=== PATIENT | female | born 1975 | race Caucasian/White ===

== ENCOUNTER 2017-11-27 05:17 | Inpatient (IN) | payer OTHER ==
[2017-11-27 06:09] LABS: #Eosinphils 0.2 thou/uL (0.0-0.7); #Lymphocytes 1.1 thou/uL (1.20-3.40); #Monocytes 0.4 thou/uL (0.11-0.59); #Neutrophils 5.2 thou/uL (1.40-6.50); %Basophils 0.7 % (0.0-1.0); %Eosinophils 2.3 % (0.0-10.0); %Lymphocytes 15.4 % (21.0-51.0); %Neutrophils 75.6 % (42.0-75.0); Hemoglobin 13.3 g/dL (12.0-16.0); Mean Corpuscular HGB CONC 33.9 g/dL (32.0-36.0); Mean Corpuscular Hemoglobin 31.4 pg (27.0-31.0); Mean Corpuscular Volume 92.6 fl (81.0-99.0); Mean Platelet Volume 6.3 fL (7.4-10.4); Platelet Count 233 thou/uL (130-400); RBC Distribution Width 11.6 % (11.5-14.5); Red Blood Cell (RBC) Count 4.25 mill/uL (4.20-5.40); White Blood Cell (WBC) Count 6.8 thou/uL (4.8-10.8)
[2017-11-27 06:28] LABS: ALT (SGPT) 97 U/L (8-55); AST (SGOT) 111 U/L (5-34); Alkaline Phosphatase 103 U/L (40-150); Anion Gap 12 mmol/L (10-20); BUN (Urea Nitrogen) 11 mg/dL (7.0-18.7); Bilirubin, Total 1.5 mg/dL (0.2-1.2); CK (CPK) 45 U/L (29-168); Calc. Creatinine Clearance 0 mL/min (70-130); Calcium 8.9 mg/dL (7.8-10.44); Carbon Dioxide 23 mmol/L (22-29); Chloride 106 mmol/L (98-107); Estimated GFR-MDRD 82; Globulin 2.6 g/dL (2.4-3.5); Glucose 101 mg/dL (70-105); Lipase 897 U/L (8-78); Potassium 3.7 mmol/L (3.5-5.1); Protein, Total 6.6 g/dL (6.0-8.3); Sodium 137 mmol/L (136-145)
[2017-11-27 06:32] LABS: CKMB 0.5 ng/mL (0-6.6); Troponin I Less than 0.010 ng/mL (< 0.028)
[2017-11-27 06:53] LABS: BHCG - Serum Negative (NEGATIVE); Pregs Control Background? CLEAR/WHITE (CLR/WHITE); Pregs Control Bar Appear? YES (CONTROL BAR)
[2017-11-27] MEDS ORDERED: Ketorolac Tromethamine 30 MG/ML VIAL ONE (06:58)
[2017-11-27] MEDS ORDERED: Morphine 2 MG/ML SYRINGE ONE (06:58)
[2017-11-27] MEDS ORDERED: Ondansetron HCl/PF 4 MG/2 ML Vial ONE (06:58)
--- NOTE | 2017-11-27 07:39 | RAD ---
RADIOGRAPH CHEST 1 VIEW: HISTORY: A 42-year-old female with acute midsternal chest pain, nonproductive cough. FINDINGS: There is no air space density, pulmonary edema, or pneumothorax. The lateral costophrenic angles are sharp. IMPRESSION: No acute pulmonary findings. keyur [] POS: [facility]
--- NOTE | 2017-11-27 07:48 | CT ---
CT ABDOMEN WITH CONTRAST CT PELVIS WITH CONTRAST: DATE: 11/27/17. TIME: 7:18 a.m. HISTORY: A 42-year-old female with midsternal chest pain, nonproductive cough, and malaise. COMPARISON: None. TECHNIQUE: IV injection of iodinated contrast media: 100 mL of Isovue 370. Oral contrast media: Not administered. FINDINGS: In the anterolateral basilar portion of the left lower lobe, there is a patchy airspace opacity highl y suspicious for pneumonia. No pleural effusion. No pneumoperitoneum or ascites. IUD. 2.5 x 2 cm left ovarian cystic lesion with relatively high density 25 HU, suggestive of a hemorrhagic cyst. No acute colonic diverticulitis. Cholecystectomy clips in the gallbladder fossa. Mild diffuse dilation of biliary tree, presumably on a reservoir basis due to the cholecystectomy. No other abnormality o f the liver. A 2 x 3 x 4 mm calculus at a left renal mid pole calyx. No other abnormality of the le ft kidney. Normal right kidney, abdominal aorta, adrenals, pancreas, and spleen. No small bowel dil ation. Normal appendix. No destructive osseous lesion. Metallic ornamental piercing at genital lab ia. IMPRESSION: 1. Evidence for left basilar lower lobe pneumonia (not visible on today's chest radiograph because i t was a 1 view study, rather than 2 view). 2. A 2.5 cm left hemorrhagic ovarian cyst. 3. Intrauterine device. 4. Status post cholecystectomy. 5. No acute findings within the abdominal cavity or pelvic cavity. 6. Nephrolithiasis: solitary calculus of left kidney. FATOUMATA [place] POS: [facility]
[2017-11-27] MEDS ORDERED: Azithromycin 500 MG VIAL ONE (07:52)
[2017-11-27] MEDS ORDERED: cefTRIAXone\\ROCEPHIN 1 GM, Syringe 0.4 ML in Sterile Water 9.6 ML SLOW IVP SCH (08:00)
--- NOTE | 2017-11-27 08:25 | PDOC.FPRHP ---
- History of Present Illness Chief Complaint: cough, nausea, vomiting, epigastric/lower sternal cp w/ radiation to back History of Present Illness: 42 yo F w/o significant pmh hx comes in for 4 day h/o dry cough and associated chills and myalgias who had acute onset epigastric/lower sternal pain with radiation to her back that woke her from sleep this morning. She describes the pain as sharp in nature and episodic, relieved only by toradol and morphine in ed. Also reports associated nasuea w/o vomiting. Last meal was yesterday @ 4pm. She has a prior surgical hx of lap carleen in 2012 w/o complication. In ED pt was found to have elvated lfts in addition to lipase of 890. She was placed NPO and given morphine and toradol for pain inaddition to zofran for nausea. Additionally, pt was found to have paatchy opacity LLL on CT of abd and pelvis concerning for pneumonia, although clinically, no overt signs of infection. ED Course: zofran toradol morphine azithromycin rocephin 1lns d5, 1/2NS - Allergies/Adverse Reactions Allergies Allergy/AdvReac Type Severity Reaction Status Date / Time No Known Drug Allergies Allergy Unverified 11/27/17 10:58 - History PMHx: None PSHx: Lap carleen 2012 FHx:None Social: Non smoker, non drinker no drugs - Review of Systems General: denies: fever/chills, weight/appetite/sleep changes, night sweats Eyes: denies: eye pain, vision changes ENT: reports: nasal congestion, rhinorrhea Respiratory: reports: cough. denies: congestion, shortness of breath, exercise intolerance Cardiovascular: reports: chest pain (/epigastric and lower sternal, midline). denies: palpitation, edema, orthopnea Gastrointestinal: reports: nausea, abdominal pain. denies: vomiting, diarrhea, constipation Skin: denies: rashes, lesions Musculoskeletal: reports: arthritis/arthralgias. denies: pain, swelling Neurological: denies: syncope, weakness - Vital signs BP: 112/91 HR: 86 RR: 16 Tmax: 98.6 Pox: 92% on RA Wt: 102Kg - Physical Exam Constitutional: NAD, awake, alert and oriented HEENT: normocephalic and atraumatic, PERRLA, EOMI, no scleral icterus, grossly normal vision, TM's clear and intact, grossly normal hearing, MMM, oropharynx clear Neck: supple, FROM, trachea midline, no LAD, no JVD, no thyromegaly Chest: no lesions, other (ttp midline, lower sternum) Heart: RRR, normal S1/S2, no murmurs/rubs/gallops, pulses present, no edema Lungs: CTAB, no respiratory distress, good air movement, no rales/rhonchi, no wheezing, no retractions Abdomen: soft, non-tender, bowel sounds present, no masses/distention Neurological: no focal deficit, normal sensation Skin: no rash/lesions, good turgor, capillary refill <2 seconds, no jaundice Heme/Lymphatic: no unusual bruising or bleeding, no purpura Psychiatric: normal mood and affect FMR H&P: Results - Labs Result Diagrams: 11/27/17 05:57 11/27/17 05:57 Lab results: WBC 6.8 thou/uL (4.8-10.8) 11/27/17 05:57 Hgb 13.3 g/dL (12.0-16.0) 11/27/17 05:57 Hct 39.3 % (36.0-47.0) 11/27/17 05:57 MCV 92.6 fl (81.0-99.0) 11/27/17 05:57 Plt Count 233 thou/uL (130-400) 11/27/17 05:57 Neutrophils % 75.6 % (42.0-75.0) H 11/27/17 05:57 Sodium 137 mmol/L (136-145) 11/27/17 05:57 Potassium 3.7 mmol/L (3.5-5.1) 11/27/17 05:57 Chloride 106 mmol/L (98-107) 11/27/17 05:57 Carbon Dioxide 23 mmol/L (22-29) 11/27/17 05:57 BUN 11 mg/dL (7.0-18.7) 11/27/17 05:57 Creatinine 0.78 mg/dL (0.6-1.1) 11/27/17 05:57 Glucose 101 mg/dL (70-105) 11/27/17 05:57 Calcium 8.9 mg/dL (7.8-10.44) 11/27/17 05:57 Total Bilirubin 1.5 mg/dL (0.2-1.2) H 11/27/17 05:57 AST 111 U/L (5-34) H 11/27/17 05:57 ALT 97 U/L (8-55) H 11/27/17 05:57 Alkaline Phosphatase 103 U/L (40-150) 11/27/17 05:57 Creatine Kinase 45 U/L (29-168) 11/27/17 05:57 CK-MB (CK-2) 0.5 ng/mL (0-6.6) 11/27/17 05:57 B-Natriuretic Peptide 12.8 pg/mL (0-100) 11/27/17 05:57 Serum Total Protein 6.6 g/dL (6.0-8.3) 11/27/17 05:57 Albumin 4.0 g/dL (3.5-5.0) 11/27/17 05:57 Lipase 897 U/L (8-78) H 11/27/17 05:57 - EKG Interpretation EKG: NSR rate 71 - Radiology Interpretation Chest x-ray Status: report reviewed by me (NAD) CT scan - abdomen Status: report reviewed by me (Patchy oopacity LLL, concerning for pneumonia) FMR H&P: A/P - Problem List (1) Pancreatitis Current Visit: Yes Status: Acute Code(s): K85.90 - ACUTE PANCREATITIS WITHOUT NECROSIS OR INFECTION, UNSP (2) Community acquired pneumonia Current Visit: Yes Status: Suspected Code(s): J18.9 - PNEUMONIA, UNSPECIFIED ORGANISM - Plan 1) Pancreatitis: -admit medical - NPO, ADAT - RUQ US with evaluation of CBD, concern for gallstone pancreatitis - check LDH, lipids, AM cmp, AM CBC - Sanje[place] 0, LDH pending - IVF NS @ 125mls/hr - Demerol and phenergan for pain and nausea/vomiting control, respectively 2) CAP, suspected: - CT abd showed pathcy lll infiltrate concerning for pneumonia, additionally pt has persistent cough - will continue rocephin and azithromycin for cap coverage - check procalcitonin - IVF NS @ 125 3) PPX: SCDs, Pepcid Disposition/LOS: stable. >/= 2 days. Symptomatic meds will be provided. FMR H&P: Upper Level - Pertinent history 42F with no significant PMH who presents with 1 day history of epigastric abdominal pain that radiates to her back associated with nausea and inability to tolerate PO. Patient is s/p lap carleen in 2012 with no complications. She takes no medications at home. She is also c/o a dry cough since . - Pertinent findings CBC normal CMP significant for lipase of 897, AST of 111 and ALT of 97, total bilirubin of 1.5 D-Dimer negative PE significant for epigastric pain but no guarding. Breath sounds were CTA-B - Plan Date/Time: 11/27/17 0821 I, Paco Carlin, have evaluated this patient and agree with findings/plan as outlined by internal grinder set up operator resident. Pertinent changes/additions are listed here. 1. Pancreatitis: Lipase of nearly 900 with epigastric abdominal pain and no longer tolerating PO. Admit to medical/inpatient. NPO and bowel rest. Morphine for pain control. History of lap carleen in 2012 with no complications. No other significant PMH. 2. LLL PNA: CXR negative but CT abd/pelvis showes LLL highly suspicious for PNA. Afebrile and no leukocytosis but has had a nonproductive cough since . Will check procalcitonin and continue antibiotics for now. 3. Transaminitis/hyperbilirubinemia: check viral hepatitis panel, RUQ US Attending Addendum - Attending Addendum Date/Time: 11/27/17 1126 I personally evaluated the patient and discussed the management with Dr. Wong. I agree with the History, Examination, Assessment and Plan documented above with any addition or exceptions noted below. Patient here with a few days of cough and acute onset mid epigastric pain and midsternal pain with radiation to back. No associated/alleviating/exacerbating factors. History of cholecystectomy. Her lipase is elevated in association with her pain. She will be admitted for pancreatitis. NPO, IVF, and pain control as needed. Unlikely lipid related or alcohol related. AST/ALT elevated as well as mild bili elevation. Will check U/S to see if gallstone as cause of her illness. CT shows infiltrate and associated cough for last few days, will cover for CAP for now.
[2017-11-27] MEDS ORDERED: cefTRIAXone\\ROCEPHIN 2 GM in Sodium Chloride 0.9% 100 ML IVPB SCH (09:00)
[2017-11-27] MEDS ORDERED: Meperidine HCl/PF 25 MG/ML VIAL SLOW IVP PRN (09:50)
[2017-11-27] MEDS ORDERED: Ondansetron ODT 4 MG TAB PO PRN (09:50)
[2017-11-27] MEDS ORDERED: Promethazine HCl 25 MG/ML VIAL IM PRN (09:50)
[2017-11-27] MEDS ORDERED: Ondansetron HCl/PF 4 MG/2 ML Vial IVP PRN (09:50)
[2017-11-27] MEDS ORDERED: Famotidine/PF 20 mg/2ml Vial SLOW IVP SCH (10:15)
[2017-11-27 10:17] LABS: Cardiac Risk 3.3 (Less than 4.5)
[2017-11-27 10:32] VITALS: BMI 39.4
[2017-11-27] MEDS: Sodium Chloride 0.9% 1,000 ML IV SCH ×2 (11:02→16:28)
[2017-11-27] MEDS ORDERED: FLU VACC QS2017-18 36 mo. & older 0.5 ML SYRINGE IM ONE (14:00)
[2017-11-27] MEDS ORDERED: ISOVUE-370 76%-LOCM 1 ML ONE (14:40)
--- NOTE | 2017-11-27 15:42 | ULT ---
COMPLETE ABDOMEN ULTRASOUND: Indication: History of acute pancreatitis. Comparison: Prior CT abdomen/pelvis, 11-27-17. FINDINGS: No focal hepatic lesion is evidence. Visualized aorta and IVC within normal limits. The spleen is enl arged measuring 13.6 cm. The gallbladder is surgically absent. Common bile duct measures up to 1.1 cm . Visualized aspects of the pancreas are unremarkable. Right kidney measures 10.5 x 4.6 x 4.5 cm. Lef t kidney measures 11.2 x 4.5 x 4.1 cm. There are small echogenic foci within the left renal sinus, schultz spicious for a 5 mm nonobstructive calculus. IMPRESSION: 1. Cholecystectomy. 2. Left nephrolithiasis. 3. Nonspecific mild splenomegaly. POS: [facility]
[2017-11-27] MEDS: Famotidine/PF 20 mg/2ml Vial SLOW IVP SCH (19:41)
[2017-11-28] MEDS: Sodium Chloride 0.9% 1,000 ML IV SCH ×3 (00:33→17:18)
[2017-11-28 04:36] LABS: #Eosinphils 0.1 thou/uL (0.0-0.7); #Lymphocytes 1.1 thou/uL (1.20-3.40); #Monocytes 0.3 thou/uL (0.11-0.59); #Neutrophils 3.8 thou/uL (1.40-6.50); %Basophils 0.5 % (0.0-1.0); %Eosinophils 2.2 % (0.0-10.0); %Lymphocytes 20.4 % (21.0-51.0); %Monocytes 6.2 % (0.0-10.0); %Neutrophils 70.7 % (42.0-75.0); Hemoglobin 11.6 g/dL (12.0-16.0); Mean Corpuscular HGB CONC 33.8 g/dL (32.0-36.0); Mean Corpuscular Hemoglobin 32.2 pg (27.0-31.0); Mean Corpuscular Volume 95.1 fl (81.0-99.0); Mean Platelet Volume 6.8 fL (7.4-10.4); Platelet Count 213 thou/uL (130-400); RBC Distribution Width 11.5 % (11.5-14.5); Red Blood Cell (RBC) Count 3.62 mill/uL (4.20-5.40); White Blood Cell (WBC) Count 5.3 thou/uL (4.8-10.8)
[2017-11-28 05:02] LABS: ALT (SGPT) 94 U/L (8-55); AST (SGOT) 50 U/L (5-34); Albumin 3.5 g/dL (3.5-5.0); Alkaline Phosphatase 86 U/L (40-150); Anion Gap 11 mmol/L (10-20); BUN (Urea Nitrogen) 8 mg/dL (7.0-18.7); Bilirubin, Total 1.2 mg/dL (0.2-1.2); CRP (Inflammatory) 0.57 mg/dL (= or < 0.5); Calc. Creatinine Clearance 177 mL/min (70-130); Calcium 8.1 mg/dL (7.8-10.44); Carbon Dioxide 21 mmol/L (22-29); Chloride 110 mmol/L (98-107); Estimated GFR-MDRD Greater than 90; Glucose 80 mg/dL (70-105); Potassium 3.7 mmol/L (3.5-5.1); Protein, Total 5.5 g/dL (6.0-8.3); Sodium 138 mmol/L (136-145)
--- NOTE | 2017-11-28 09:10 | PDOC.FM ---
- Subjective Subjective: THis morning patient states she is feeling much better. Denies abdominal pain. She is continuing to cough. States she is having no pain with ice chips. - Objective Vital Signs & Weight: Vital Signs (12 hours) Temp Pulse Resp BP Pulse Ox 11/28/17 08:00 98.6 F 88 16 113/70 95 11/28/17 04:00 98.7 F 101 H 20 106/61 96 11/28/17 00:00 98.6 F 84 20 126/76 93 L Weight Weight 102.06 kg I&O: 11/27/17 11/28/17 11/29/17 06:59 06:59 06:59 Intake Total 2297 Balance 2297 Result Diagrams: 11/28/17 03:37 11/28/17 03:37 <Beau Kelley - Last Filed: 11/28/17 09:08> - Objective Vital Signs & Weight: Vital Signs (12 hours) Temp Pulse Resp BP Pulse Ox 11/28/17 11:51 98.4 F 81 16 125/75 92 L 11/28/17 08:00 98.6 F 88 16 113/70 95 11/28/17 04:00 98.7 F 101 H 20 106/61 96 Weight Weight 102.06 kg I&O: 11/27/17 11/28/17 11/29/17 06:59 06:59 06:59 Intake Total 2297 590 Balance 2297 590 Result Diagrams: 11/28/17 03:37 11/28/17 03:37 <Isauro Starkey - Last Filed: 11/28/17 15:42> Phys Exam - Physical Examination Constitutional: NAD HEENT: PERRLA, moist MMs Neck: no nodes, full ROM Respiratory: no wheezing, clear to auscultation bilateral very mild consolidation in LLL Cardiovascular: RRR Gastrointestinal: soft, non-tender, positive bowel sounds Musculoskeletal: no edema Neurological: non-focal, moves all 4 limbs Psychiatric: normal affect, A&O x 3 Skin: no rash, cap refill <2 seconds <Beau Kelley - Last Filed: 11/28/17 09:08> Dx/Plan - Plan Plan: 1) Pancreatitis: -admit medical - advance diet as tolerated - RUQ US with evaluation of CBD, concern for gallstone pancreatitis - re-check lipase - [place] 0, LDH pending - IVF NS @ 125mls/hr - Demerol and phenergan for pain and nausea/vomiting control, respectively 2) CAP, suspected: - CT abd showed pathcy lll infiltrate concerning for pneumonia, additionally pt has persistent cough - azithromycin for CAP coverage - check procalcitonin - IVF NS @ 125 3) PPX: SCDs, Pepcid Disposition/LOS: stable. >/= 2 days. Symptomatic meds will be provided. <Beau Kelley - Last Filed: 11/28/17 09:08> Attending Addendum - Attending Addendum Date/Time: 11/28/17 4744 I personally evaluated the patient and discussed the management with Dr. Kelley. I agree with the History, Examination, Assessment and Plan documented above with any addition or exceptions noted below. <Isauro Starkey - Last Filed: 11/28/17 15:42>
[2017-11-28] MEDS: Famotidine/PF 20 mg/2ml Vial SLOW IVP SCH ×2 (09:25→19:59)
[2017-11-28] MEDS ORDERED: Acetaminophen 325 MG TAB PO PRN ×2 (10:47→12:31)
[2017-11-28] MEDS: Ibuprofen 600 MG TAB PO PRN ×2 (11:43→18:22)
[2017-11-28] MEDS: Guaifenesin DM 100-10/5 ML UDCUP PO PRN ×2 (13:32→20:02)
[2017-11-29] MEDS: Guaifenesin DM 100-10/5 ML UDCUP PO PRN ×3 (00:03→10:49)
[2017-11-29] MEDS: Sodium Chloride 0.9% 1,000 ML IV SCH ×2 (00:04→09:15)
[2017-11-29] MEDS: Ibuprofen 600 MG TAB PO PRN (04:31)
[2017-11-29 04:46] LABS: #Eosinphils 0.2 thou/uL (0.0-0.7); #Lymphocytes 1.4 thou/uL (1.20-3.40); #Monocytes 0.4 thou/uL (0.11-0.59); #Neutrophils 1.9 thou/uL (1.40-6.50); %Basophils 0.4 % (0.0-1.0); %Eosinophils 5.8 % (0.0-10.0); %Lymphocytes 35.4 % (21.0-51.0); %Monocytes 9.8 % (0.0-10.0); %Neutrophils 48.5 % (42.0-75.0); Hemoglobin 11.2 g/dL (12.0-16.0); Mean Corpuscular HGB CONC 34.2 g/dL (32.0-36.0); Mean Corpuscular Hemoglobin 31.8 pg (27.0-31.0); Mean Corpuscular Volume 92.8 fl (81.0-99.0); Mean Platelet Volume 6.5 fL (7.4-10.4); Platelet Count 195 thou/uL (130-400); RBC Distribution Width 11.5 % (11.5-14.5); Red Blood Cell (RBC) Count 3.53 mill/uL (4.20-5.40); White Blood Cell (WBC) Count 3.9 thou/uL (4.8-10.8)
[2017-11-29 05:17] LABS: ALT (SGPT) 60 U/L (8-55); AST (SGOT) 25 U/L (5-34); Albumin 3.4 g/dL (3.5-5.0); Alkaline Phosphatase 73 U/L (40-150); Anion Gap 9 mmol/L (10-20); BUN (Urea Nitrogen) 5 mg/dL (7.0-18.7); Bilirubin, Total 1.1 mg/dL (0.2-1.2); Calc. Creatinine Clearance 177 mL/min (70-130); Calcium 8.1 mg/dL (7.8-10.44); Carbon Dioxide 24 mmol/L (22-29); Chloride 111 mmol/L (98-107); Estimated GFR-MDRD Greater than 90; Globulin 2.2 g/dL (2.4-3.5); Glucose 84 mg/dL (70-105); Potassium 3.5 mmol/L (3.5-5.1); Protein, Total 5.6 g/dL (6.0-8.3); Sodium 140 mmol/L (136-145)
[2017-11-29] MEDS ORDERED: Azithromycin 250 MG TAB PO SCH (09:00)
--- NOTE | 2017-11-29 09:08 | PDOC.FM ---
- Subjective Subjective: This morning the patient states that she was able to tolerate full liquids yesterday without issues. Will try softs at breakfast today. Patient is feeling ready to go home. - Objective Vital Signs & Weight: Vital Signs (12 hours) Temp Pulse Resp BP Pulse Ox 11/29/17 08:00 97.9 F 68 20 124/69 94 L 11/29/17 07:20 98.3 F 79 18 98 Weight Weight 102.06 kg I&O: 11/28/17 11/29/17 11/30/17 06:59 06:59 06:59 Intake Total 2297 2810 Balance 2297 2810 Result Diagrams: 11/29/17 03:33 11/29/17 03:33 <Beau Kelley - Last Filed: 11/29/17 09:13> - Objective Vital Signs & Weight: Vital Signs (12 hours) Temp Pulse Resp BP Pulse Ox 11/29/17 12:05 97.6 F 69 16 139/89 94 L 11/29/17 08:00 97.9 F 68 20 124/69 94 L 11/29/17 07:20 98.3 F 79 18 98 Weight Weight 102.06 kg I&O: 11/28/17 11/29/17 11/30/17 06:59 06:59 06:59 Intake Total 2297 2810 180 Balance 2297 2810 180 Result Diagrams: 11/29/17 03:33 11/29/17 03:33 <Isauro Starkey - Last Filed: 11/29/17 16:38> Phys Exam - Physical Examination Constitutional: NAD HEENT: PERRLA, moist MMs Neck: no nodes, full ROM Respiratory: no wheezing, clear to auscultation bilateral Cardiovascular: RRR, no significant murmur Gastrointestinal: soft, non-tender, no distention, positive bowel sounds Musculoskeletal: no edema, pulses present Neurological: non-focal, moves all 4 limbs Psychiatric: normal affect, A&O x 3 Skin: no rash, cap refill <2 seconds <Beau Kelley - Last Filed: 11/29/17 09:13> Dx/Plan (1) Pancreatitis Code(s): K85.90 - ACUTE PANCREATITIS WITHOUT NECROSIS OR INFECTION, UNSP Status: Acute (2) Community acquired pneumonia Code(s): J18.9 - PNEUMONIA, UNSPECIFIED ORGANISM Status: Suspected - Plan Plan: # Pancreatitis - lipase 897 -> 21 - tolerated full liquids yesterday, try softs this AM - anticipate d/c this PM # CAP, suspected - CT shows patchy infiltrate, patient with consistent cough - switched to levoquin for better CAP coverage # PPx - SCDs <Beau Kelley - Last Filed: 11/29/17 09:13> Attending Addendum - Attending Addendum Date/Time: 11/29/17 0441 I personally evaluated the patient and discussed the management with Dr. Kelley. I agree with the History, Examination, Assessment and Plan documented above with any addition or exceptions noted below. <Isauro Starkey - Last Filed: 11/29/17 16:38>
[2017-11-29] MEDS: Famotidine/PF 20 mg/2ml Vial SLOW IVP SCH (09:15)
[2017-11-29 12:06] VITALS: BP 139/89; TEMP 97.6
--- NOTE | 2017-11-29 14:07 | DIS-2 ---
DATE OF ADMISSION: 11/27/2017 DATE OF DISCHARGE: 11/29/2017 RESIDENT: Dr. Beau Kelley ADMITTING ATTENDING: Dr. Gigi Mcgregor. DISCHARGE ATTENDING: Dr. Isauro Starkey CONSULTATIONS: None. PROCEDURES: None. ADMISSION DIAGNOSIS: Acute pancreatitis. DISCHARGE DIAGNOSES: Acute pancreatitis. DISCHARGE MEDICATIONS: Levofloxacin 500 mg once daily for 4 days, Zofran 4 mg q.6h. p.r.n. as needed for 4 days. HISTORY OF PRESENT ILLNESS AND HOSPITAL COURSE: The patient presented to the hospital with 4 days hi story of dry cough and associated chills. She also had acute onset of epigastric and lower sternal p ain with radiation to her back that woke her from sleep that morning. She described the pain as marc p in nature and episodic relieved only by Toradol and morphine in the ED. She also had nausea and vo miting. Her last day was at 4:00 p.m. before date of presentation. She has a history of laparoscopi c cholecystectomy in 2012. In the ED, she was found to have a lipase of 890 as well as elevated LFTs and so she was admitted for treatment of acute pancreatitis. During the hospital stay, the patient remained n.p.o. until she could tolerate fluids. She was given IV fluids, her nausea was treated, and her pain was controlled. On CT scan of the abdomen she was f ound to have what appeared to be a left lower lobe pneumonia. The patient was treated with antibioti cs during hospital stay and discharged with an additional 4 day course of Levaquin. Upon discharge, the patient was tolerating solid foods without abdominal pain. DISPOSITION: Stable. DISCHARGE INSTRUCTIONS: 1. Location: Home. 2. Diet: Regular. 3. Activity: As tolerated. 4. Followup: Follow up with PCP Dr. Margarita Bourgeois, within 7 days.
--- NOTE | 2017-12-10 12:36 | EKG ---
Test Reason : Blood Pressure : / mmHG Vent. Rate : 071 BPM Atrial Rate : 071 BPM P-R Int : 128 ms QRS Dur : 074 ms QT Int : 380 ms P-R-T Axes : 023 002 030 degrees QTc Int : 412 ms Normal sinus rhythm Possible Left atrial enlargement Cannot rule out Inferior infarct , age undetermined Abnormal ECG Confirmed by ABDI JUSTIN, MARITZA ([id number]), news editor JEFFERSON CONSTANTINO ([id number]) on 12/10/2017 12:35:58 PM Referred By: Confirmed By:MARITZA PATTON MD
== END 2017-11-29 12:10 | disposition home or self-care (01) | DRG 438 ==
LOC: ERS 05:17 → T4-A 07:51
PROVIDERS: ADMIT Student in an Organized Health Care Education/Training Program; ATTEND Student in an Organized Health Care Education/Training Program
DX: K85.90 Acute pancreatitis without necrosis or infection, unspecified (principal); J18.9 Pneumonia, unspecified organism; R74.0 Nonspecific elevation of levels of transaminase and lactic acid dehydrogenase [LDH]; E80.6 Other disorders of bilirubin metabolism
CPT/HCPCS: 36415; 71045; 74177; 76700; 80053; 80061; 82550; 82553; 83615; 83690; 83880; 84145; 84484; 84703; 85025; 85379; 86140; 87040; 87804; 90471; 90682; 93005; 96361; 96365; 96367; 96375; A4216; G0008; J0456; J0696; J1885; J2175; J2270; J2405; J7050; Q2036; S0028

== ENCOUNTER → 2022-12-30 | Day surgery (SDC) | payer BC | END | disposition home or self-care (01) | LOC: BICULT 12:33 | PROVIDERS: ATTEND Student in an Organized Health Care Education/Training Program | PROC: 0H9T3ZX Drainage of Right Breast, Percutaneous Approach, Diagnostic (ICD-10-PCS; principal; 2022-12-30) | DX: D24.1 Benign neoplasm of right breast (principal) | CPT/HCPCS: 19083; 88305 ==

== ENCOUNTER 2023-07-18 09:53 | Emergency (ER) | payer BC ==
[~2023-07-18 09:53] MED LIST: Iopamidol-370 76% 500 ML MDV (1 ML CHARGE) ONE
[2023-07-18 10:18] LABS: #Basophils 0.1 thou/uL (0.0-0.2); #Eosinphils 0.1 thou/uL (0.0-0.7); #Monocytes 0.4 thou/uL (0.11-0.59); #Neutrophils 4.9 thou/uL (1.40-6.50); %Basophils 0.9 % (0.0-1.0); %Eosinophils 1.7 % (0.0-10.0); %Lymphocytes 25.4 % (21.0-51.0); %Monocytes 5.9 % (0.0-10.0); %Neutrophils 65.7 % (42.0-75.0); Hematocrit 39.5 % (36.0-47.0); Hemoglobin 13.2 g/dL (12.0-16.0); Mean Corpuscular HGB CONC 33.4 g/dL (32.0-36.0); Mean Corpuscular Hemoglobin 31.4 pg (27.0-31.0); Mean Corpuscular Volume 93.8 fl (78.0-98.0); Mean Platelet Volume 9.5 fL (7.4-10.4); Platelet Count 278 10x3/uL (130-400); RBC Distribution Width 12.1 % (11.5-14.5); Red Blood Cell (RBC) Count 4.21 mill/uL (4.20-5.40); White Blood Cell (WBC) Count 7.4 10x3/uL (4.8-10.8)
[2023-07-18 10:48] LABS: ALT (SGPT) 11 U/L (8-55); AST (SGOT) 14 U/L (5-34); Albumin 4.5 g/dL (3.5-5.0); Alkaline Phosphatase 52 U/L (40-110); Anion Gap 12 mmol/L (10-20); BUN (Urea Nitrogen) 11 mg/dL (7.0-18.7); Bilirubin, Total 1.6 mg/dL (0.2-1.2); Calc. Creatinine Clearance 0 mL/min (70-130); Calcium 8.9 mg/dL (7.8-10.44); Carbon Dioxide 24 mmol/L (22-29); Chloride 105 mmol/L (98-107); Estimated GFR 93; Globulin 2.3 g/dL (2.4-3.5); Glucose 90 mg/dL (70-105); Lipase 23 U/L (8-78); Potassium 4.1 mmol/L (3.5-5.1); Protein, Total 6.8 g/dL (6.0-8.3); Sodium 137 mmol/L (136-145)
[2023-07-18 10:49] LABS: Troponin I Less than 0.010 ng/mL (< 0.028)
[2023-07-18] MEDS ORDERED: Morphine 4 MG/ML VIAL ONE (12:08)
[2023-07-18] MEDS ORDERED: Ondansetron PF 4 MG/2 ML Vial ONE (12:08)
[2023-07-18] MEDS ORDERED: Lidocaine 2% Viscous Solution 10 ML, Aluminum & Magnesium Hydroxide 30 ML SSW SCH (12:15)
== END 2023-07-18 14:27 | disposition home or self-care (01) ==
LOC: ERS 09:53
DX: R10.13 Epigastric pain (principal); R94.31 Abnormal electrocardiogram [ECG] [EKG]
CPT/HCPCS: 36415; 71045; 71275; 74174; 80053; 83690; 84484; 85025; 93005; 96374; 96375; J2270; J2405; Q9967

== ENCOUNTER 2024-02-03 13:51 | Outpatient (CLI) | payer BC | END 2024-02-03 13:52 | disposition home or self-care (01) | LOC: DTY/OP 13:51 | PROVIDERS: ATTEND Student in an Organized Health Care Education/Training Program | DX: E66.01 Morbid (severe) obesity due to excess calories (principal) | CPT/HCPCS: 97802 ==

== ENCOUNTER 2024-02-29 13:09 | Outpatient (CLI) | payer BC | END 2024-02-29 13:10 | disposition home or self-care (01) | LOC: DTY/OP 13:09 | PROVIDERS: ATTEND Student in an Organized Health Care Education/Training Program | DX: E66.01 Morbid (severe) obesity due to excess calories (principal) | CPT/HCPCS: 97802 ==

== ENCOUNTER 2024-03-15 11:34 | Outpatient (CLI) | payer BC | END 2024-03-15 11:35 | disposition home or self-care (01) | LOC: DTY/OP 11:34 | PROVIDERS: ATTEND Student in an Organized Health Care Education/Training Program | DX: E66.01 Morbid (severe) obesity due to excess calories (principal) | CPT/HCPCS: 97802 ==

== ENCOUNTER 2024-04-12 11:57 | Outpatient (CLI) | payer BC | END 2024-04-12 11:58 | disposition home or self-care (01) | LOC: DTY/OP 11:57 | PROVIDERS: ATTEND Student in an Organized Health Care Education/Training Program | DX: E66.01 Morbid (severe) obesity due to excess calories (principal) | CPT/HCPCS: 97802 ==

== ENCOUNTER 2024-05-25 15:04 | Outpatient (CLI) | payer BC ==
[2024-05-25 16:19] LABS: #Basophils 0.06 10x3/uL (0.0-0.2); %Basophils 0.7 % (0.0-1.0); %Eosinophils 2.8 % (0.0-10.0); %Lymphocytes 27.2 % (21.0-51.0); %Monocytes 6.2 % (0.0-10.0); %Neutrophils 62.6 % (42.0-75.0); Hematocrit 38.2 % (36.0-47.0); Hemoglobin 12.7 g/dL (12.0-16.0); Mean Corpuscular HGB CONC 33.2 g/dL (32.0-36.0); Mean Corpuscular Hemoglobin 31.7 pg (27.0-31.0); Mean Corpuscular Volume 95.3 fL (78.0-98.0); Mean Platelet Volume 9.5 fL (7.4-10.4); Platelet Count 260 10x3/uL (130-400); RBC Distribution Width 11.9 % (11.5-14.5); Red Blood Cell (RBC) Count 4.01 mill/uL (4.20-5.40)
[2024-05-25 18:30] LABS: ALT (SGPT) 29 U/L (8-55); AST (SGOT) 25 U/L (5-34); Alkaline Phosphatase 60 U/L (40-110); Anion Gap 15 mmol/L (10-20); BUN (Urea Nitrogen) 18 mg/dL (7.0-18.7); Bilirubin, Direct 0.2 mg/dL (0.1-0.3); Bilirubin, Total 0.9 mg/dL (0.2-1.2); Calc. Creatinine Clearance 0 mL/min (70-130); Calcium 9.3 mg/dL (7.8-10.44); Carbon Dioxide 24 mmol/L (22-29); Chloride 105 mmol/L (98-107); Estimated GFR 89; Globulin 3.2 g/dL (2.4-3.5); Glucose 95 mg/dL (70-105); Potassium 4.3 mmol/L (3.5-5.1); Protein, Total 7.2 g/dL (6.0-8.3); Sodium 140 mmol/L (136-145)
== END 2024-05-25 15:05 | disposition home or self-care (01) ==
LOC: LABBT 15:04
PROVIDERS: ATTEND Internal Medicine Cardiovascular Disease
DX: Z01.812 Encounter for preprocedural laboratory examination (principal); I42.9 Cardiomyopathy, unspecified
CPT/HCPCS: 80053; 80076; 85025